=== PATIENT | male | born 1990 | race Caucasian/White ===

== ENCOUNTER 2017-07-17 17:13 | Emergency (ER) | payer SELFPAY ==
[2017-07-17 17:19] VITALS: TEMP 98.5; BMI 31.6
[2017-07-17] MEDS ORDERED: ALBUTEROL SO4 2.5/IPRATROPIUM 0.5 INH SOL 3 ML VIAL.NEB. NEB ONE ×4 (17:31→17:58)
[2017-07-17] MEDS ORDERED: predniSONE 20 MG TABLET (UD) ONE (17:42)
--- NOTE | 2017-07-17 17:46 | PDOC ---
History of Present Illness - General Chief Complaint: Asthma Stated Complaint: ASTHMA Time Seen by Provider: 07/17/17 17:24 History Source: Patient Exam Limitations: No Limitations - History of Present Illness Initial Comments: 07/17/17 17:46 The patient is a 26M with a PMH of asthma who presents with an asthma exacerbation. The patient states that he has had a deep cough productive with yellow sputum for 3 days. He has never been intubated and never had an ICU stay. His last exacerbation was when he was 12-13 years old where he was hospitalized for a couple days. He does have seasonal allergies. Past History - Past Medical History Allergies/Adverse Reactions: Allergies Allergy/AdvReac Type Severity Reaction Status Date / Time No Known Allergies Allergy Verified 07/17/17 17:19 Home Medications: Ambulatory Orders Albuterol Sulfate Inhaler - [Ventolin Hfa Inhaler -] 1 - 2 inh PO QID PRN #1 inhaler 07/17/17 Inhaler, Assist Devices [Space Chamber Plus] 1 each MC QID #1 spacer 07/17/17 Prednisone [Deltasone] 20 mg PO DAILY #8 tablet 07/17/17 Prednisone [Deltasone -] 40 mg PO DAILY #8 tablet 07/18/17 Asthma: Yes - Immunization History Immunization Up to Date: Yes - Psycho/Social/Smoking Cessation Hx Anxiety: No Suicidal Ideation: No Smoking History: Never smoked Have you smoked in the past 12 months: No Information on smoking cessation initiated: No Hx Alcohol Use: No Drug/Substance Use Hx: No Substance Use Type: None Review of Systems - Review of Systems Able to Perform ROS?: Yes Is the patient limited Belarusian proficient: No Constitutional: No: Chills, Fever Respiratory: Yes: Cough, Shortness of Breath Cardiac (ROS): No: Chest Pain ABD/GI: No: Constipated, Diarrhea, Nausea, Vomiting : No: Burning, Dysuria, Discharge Neurological: No: Headache, Numbness, Tingling, Weakness *Physical Exam - Vital Signs Last Vital Signs Temp Pulse Resp BP Pulse Ox 98.5 F 90 18 165/97 95 07/17/17 17:14 07/17/17 17:14 07/17/17 17:14 07/17/17 17:14 07/17/17 17:14 - Physical Exam General Appearance: Yes: Nourished, Appropriately Dressed. No: Apparent Distress HEENT: positive: Normal Voice, Hearing Grossly Normal Respiratory/Chest: positive: Wheezing (b/l lower lung nevarez). negative: Chest Tender, Lungs Clear, Respiratory Distress, Accessory Muscle Use, Labored Respiration, Rapid RR, Decreased Breath Sounds, Crackles, Rales, Rhonchi, Stridor, Dullness Cardiovascular: positive: Regular Rhythm, Regular Rate, S1, S2. negative: Diastolic Murmur, Systolic Murmur Gastrointestinal/Abdominal: positive: Flat, Soft. negative: Tender, Protuberent , Distended, Guarding, Rebound, Tenderness Integumentary: positive: Dry, Warm. negative: Cold, Clammy, Swelling, Ecchymosis Neurologic: positive: Fully Oriented, Alert, Normal Mood/Affect, Motor Strength 5/5 Medical Decision Making - Medical Decision Making 07/17/17 17:53 The patient is a 26M with a PMH of asthma who presents with an asthma exacerbation. The patient admits to feeling "sick" but also having an exposure to pollen which he is allergic to. I am giving him breathing treatments and steroids and will reassess. 07/17/17 18:30 Patient states he is feeling better. Was informed to follow with Dr. Kirk on an outpatient basis. 07/17/17 19:43 CXR read by my attending and I and does not show an acute pathology in our opinion. Patient informed and will be discharged. 07/17/17 19:44 Patient agrees and is ready for d/c. *DC/Admit/Observation/Transfer Diagnosis at time of Disposition: Asthma Qualifiers: Asthma severity: mild intermittent Asthma complication type: with acute exacerbation Qualified Code(s): J45.21 - Mild intermittent asthma with (acute) exacerbation - Discharge Dispostion Disposition: HOME Condition at time of disposition: Stable Admit: No - Prescriptions Prescriptions: Prednisone [Deltasone] 20 mg PO DAILY #8 tablet Prednisone [Deltasone -] 40 mg PO DAILY #8 tablet Inhaler, Assist Devices [Space Chamber Plus] 1 each MC QID #1 spacer Albuterol Sulfate Inhaler - [Ventolin Hfa Inhaler -] 1 - 2 inh PO QID PRN #1 inhaler PRN Reason: Short Of Breath/Wheezing - Referrals Referrals: STAFF,NOT ON [Primary Care Provider] - - Patient Instructions Printed Discharge Instructions: Asthma -- Adult Additional Instructions: Please return to the ER if symptoms persist, worsen, or if new symptoms arise. Please take your medications as prescribed: - Prednisone for 4 days; 2 tablets per day - Ventolin as needed for wheezing or shortness of breath - Use the spacer with the ventolin (inhaler) Please follow up with your primary care doctor in 2-3 days. Please follow up with Dr. Kirk within 2-3 days. Print Language: MAURITIAN
[2017-07-17] MEDS ORDERED: predniSONE 20 MG TABLET (UD) PO ONE (17:57)
--- NOTE | 2017-07-17 18:03 | PDOC ---
Attending Attestation - HPI HPI: 07/17/17 18:08 The patient is a 26 year old male, with significant past medical history of asthma and seasonal allergies, who presents to the emergency room with 3 days of productive cough with yellow sputum, fever, chills, and difficulty breathing. He has been taking advil for the fever with mild relief. He has never been intubated. Denies chest pain/ tightness. - Physicial Exam PE: 07/17/17 18:08 Constitutional: Awake, alert, oriented. No acute distress. Speaking in full sentences. Head: Normocephalic. Atraumatic Eyes: PERRL. EOMI. Conjunctivae are not pale. ENT: Mucous membranes are moist and intact. Posterior pharynx without exudates or erythema. Uvula midline. Neck: Supple. Full ROM. No lymphadenopathy. Cardiovascular: Regular rate. Regular rhythm. S1, S2 regular. Distal pulses are 2+ and symmetric. Pulmonary/Chest: +prolonged expiratory phase. Wheezes in the bases and lower lobes posteriorly. Some soft crackles at the right base. Speaking in full sentences. Skin: Skin is warm and dry. No petechiae. No purpura. Neurological: Alert and oriented to person, place, and time. Cranial nerves II -XII are grossly intact. Normal speech. Strength is grossly symmetric. No sensory deficits. Psychiatric: Good eye contact. Normal interaction, affect and behavior. <Chana Bowden - Last Filed: 07/17/17 18:08> - Resident Resident Name: Frantz Staton - ED Attending Attestation I have performed the following: I have examined & evaluated the patient, The case was reviewed & discussed with the resident, I agree w/resident's findings & plan, Exceptions are as noted - Medical Decision Making 07/17/17 18:03 a/p: 26yo male with hx of asthma now with 2 days of wheezing, cough, chest tightness -cxr -nebs -steroids -monitor -nontoxic in appearance 07/17/17 18:33 I, Dr. Letitia Dailey, DO, attest that this document has been prepared under my direction and personally reviewed by me in its entirety. I further attest, that it accurately reflects all work, treatment, procedures and medical decision -making performed by me. 09/16/17 18:35 re-eval: pt feeling much better. nad. lungs cta. discussed all reasons to return to the ED. Recommended pulmonary follow up. Pt stable for d/c to home. 07/17/17 19:12 <Letitia Dailey - Last Filed: 07/17/17 19:13> Discharge Disposition <Chana Bowden - Last Filed: 07/17/17 18:08> <Letitia Dailey - Last Filed: 07/17/17 19:13> - Diagnosis Asthma Qualifiers: Asthma severity: mild intermittent Asthma complication type: with acute exacerbation Qualified Code(s): J45.21 - Mild intermittent asthma with (acute) exacerbation - Discharge Dispostion Disposition: HOME Condition at time of disposition: Stable - Prescriptions Prescriptions: Prednisone [Deltasone] 20 mg PO DAILY #8 tablet Prednisone [Deltasone -] 40 mg PO DAILY #8 tablet Inhaler, Assist Devices [Space Chamber Plus] 1 each MC QID #1 spacer Albuterol Sulfate Inhaler - [Ventolin Hfa Inhaler -] 1 - 2 inh PO QID PRN #1 inhaler PRN Reason: Short Of Breath/Wheezing - Referrals Referrals: STAFF,NOT ON [Primary Care Provider] - - Patient Instructions Printed Discharge Instructions: Asthma -- Adult Additional Instructions: Please return to the ER if symptoms persist, worsen, or if new symptoms arise. Please take your medications as prescribed: - Prednisone for 4 days; 2 tablets per day - Ventolin as needed for wheezing or shortness of breath - Use the spacer with the ventolin (inhaler) Please follow up with your primary care doctor in 2-3 days. Please follow up with Dr. Kirk within 2-3 days.
[2017-07-17 20:00] VITALS: BP 126/75; PULSE 93
== END 2017-07-17 20:00 | disposition home or self-care (01) ==
LOC: JER 17:13
PROC: 3E0F7GC Introduction of Other Therapeutic Substance into Respiratory Tract, Via Natural or Artificial Opening (ICD-10-PCS; principal; 2017-07-17)
PROC: 3E0F7GC Introduction of Other Therapeutic Substance into Respiratory Tract, Via Natural or Artificial Opening (ICD-10-PCS; 2017-07-17)
PROC: 3E0F7GC Introduction of Other Therapeutic Substance into Respiratory Tract, Via Natural or Artificial Opening (ICD-10-PCS; 2017-07-17)
DX: J45.21 Mild intermittent asthma with (acute) exacerbation (principal)
CPT/HCPCS: 71020-TC; 99282-25

== ENCOUNTER 2018-01-23 15:29 | Emergency (ER) | payer OTHER ==
[2018-01-23 15:36] VITALS: BP 153/81; PULSE 82; TEMP 97.8; BMI 32.4
[2018-01-23] MEDS ORDERED: ALBUTEROL SO4 2.5/IPRATROPIUM 0.5 INH SOL 3 ML VIAL.NEB. NEB ONE (16:00)
[2018-01-23] MEDS ORDERED: predniSONE 20 MG TABLET (UD) PO ONE (16:01)
[2018-01-23] MEDS ORDERED: predniSONE 20 MG TABLET (UD) ONE (16:44)
--- NOTE | 2018-01-23 16:48 | PDOC ---
History of Present Illness - General Chief Complaint: Respiratory Stated Complaint: CONGESTION, SOB (ASTHMA) Time Seen by Provider: 01/23/18 15:38 History Source: Patient Exam Limitations: No Limitations - History of Present Illness Initial Comments: 01/23/18 16:43 27-year-old male with history of asthma presents to the ED with complaints of intermittent coughing and wheezing for the past 2 days. Patient states symptoms initially started with nasal congestion which he believes triggered his symptoms above. Patient denies chest pain, shortness of breath, fever, chills, abdominal pain, or nausea. Patient denies smoking. Timing/Duration: reports: yesterday Severity: reports: mild Possible Cause: Yes: occasional episodes Modifying Factors: improves with: albuterol nebulizer, coughing Associated Symptoms: reports: cough, nasal congestion, wheezing Past History - Travel Traveled outside of the country in the last 30 days: No - Past Medical History Allergies/Adverse Reactions: Allergies Allergy/AdvReac Type Severity Reaction Status Date / Time No Known Allergies Allergy Verified 01/23/18 15:36 Home Medications: Ambulatory Orders NK [No Known Home Medication] 01/23/18 Asthma: Yes COPD: No - Immunization History Immunization Up to Date: Yes - Suicide/Smoking/Psychosocial Hx Smoking History: Never smoked Have you smoked in the past 12 months: No Hx Alcohol Use: No Drug/Substance Use Hx: No Substance Use Type: None Patient Lives Alone: No Lives with/in: parents Review of Systems - Review of Systems Able to Perform ROS?: Yes Constitutional: No: Symptoms Reported HEENTM: No: Symptoms Reported Respiratory: Yes: Cough, Wheezing Cardiac (ROS): No: Symptoms Reported ABD/GI: No: Symptoms Reported : No: Symptoms Reported Musculoskeletal: No: Symptoms Reported Integumentary: No: Symptoms Reported Neurological: No: Symptoms reported *Physical Exam - Vital Signs Last Vital Signs Temp Pulse Resp BP Pulse Ox 97.8 F 82 18 153/81 95 01/23/18 15:33 01/23/18 15:33 01/23/18 15:33 01/23/18 15:33 01/23/18 15:33 - Physical Exam General Appearance: Yes: Nourished, Appropriately Dressed. No: Apparent Distress Neck: positive: Supple Respiratory/Chest: positive: Wheezing (exp. bilateral). negative: Respiratory Distress, Accessory Muscle Use, Labored Respiration Cardiovascular: positive: Regular Rhythm, Regular Rate. negative: Murmur Extremity: negative: Pedal Edema Integumentary: positive: Normal Color, Warm, Moist Neurologic: positive: Motor Strength 5/5 (ambulatory) Medical Decision Making - Medical Decision Making 01/23/18 16:46 Patient with mild asthma exacerbation. Patient examined expiratory wheeze to bilateral lung nevarez. Patient ordered for DuoNeb along with prednisone by mouth here patient will be discharged home with inhaler and prednisone for 2 more days. Patient states is not have any more medication including inhaler at home. *DC/Admit/Observation/Transfer Diagnosis at time of Disposition: Asthma - Discharge Dispostion Disposition: HOME Condition at time of disposition: Improved - Referrals - Patient Instructions Printed Discharge Instructions: DI for Asthma -- Adult Additional Instructions: Please take prednisone starting tomorrow. Please Inhaler with you at all times. - Post Discharge Activity
== END 2018-01-23 17:08 | disposition home or self-care (01) ==
LOC: JERFT 15:29
PROC: 3E0F7GC Introduction of Other Therapeutic Substance into Respiratory Tract, Via Natural or Artificial Opening (ICD-10-PCS; principal; 2018-01-23)
DX: J45.901 Unspecified asthma with (acute) exacerbation (principal)
CPT/HCPCS: 94640; 99281-25

== ENCOUNTER 2019-01-02 04:00 | Emergency (ER) | payer SELFPAY ==
--- NOTE | 2019-01-02 04:06 | PDOC ---
History of Present Illness - General Chief Complaint: Asthma Stated Complaint: ASTHMA Time Seen by Provider: 01/02/19 04:05 History Source: Patient - History of Present Illness Initial Comments: 01/02/19 04:25 28-year-old male with history of asthma complaining of shortness of breath and wheezing, fever for 1-1/2 days at home. Patient reports that she he has been using his albuterol pump with no improvement in symptoms. Patient denies getting a flu vaccine this season. denies NVD, abdominal pain, throat pain Denies intubation for asthma or ICU stay for hospitalization. 01/02/19 04:30 Past History - Past Medical History Allergies/Adverse Reactions: Allergies Allergy/AdvReac Type Severity Reaction Status Date / Time No Known Allergies Allergy Verified 01/23/18 15:36 Home Medications: Ambulatory Orders Albuterol Sulfate Inhaler - [Ventolin HFA Inhaler -] 1 - 2 inh PO QID PRN #1 inhaler 01/23/18 predniSONE [Deltasone -] 40 mg PO DAILY #4 tablet 01/23/18 Albuterol 0.083% Nebulizer Tasneem [Ventolin 0.083% Nebulizer Soln -] 1 neb NEB Q4H PRN #25 vial 01/02/19 Azithromycin [Zithromax 250mg Tablets -] 250 mg PO DAILY #4 tab 01/02/19 Nebulizer [Aeroeclipse II] 1 each MC QID #1 each 01/02/19 Asthma: Yes COPD: No - Immunization History Immunization Up to Date: Yes - Suicide/Smoking/Psychosocial Hx Smoking History: Never smoked Have you smoked in the past 12 months: No Hx Alcohol Use: No Drug/Substance Use Hx: No Substance Use Type: None Review of Systems - Review of Systems Able to Perform ROS?: Yes Is the patient limited Yi proficient: No Constitutional: Yes: Fever HEENTM: Yes: Nose Congestion. No: Symptoms Reported, See HPI, Eye Pain, Blurred Vision, Tearing, Recent change in vision, Double Vision, Cataracts, Ear Pain, Ocular Prothesis, Ear Discharge, Nose Pain, Tinnitus, Nose Bleeding, Hearing Loss, Throat Pain, Throat Swelling, Mouth Pain, Dental Problems, Difficulty Swallowing, Mouth Swelling, Other Respiratory: Yes: Cough, Shortness of Breath, Wheezing. No: Symptoms reported, See HPI, Orthopnea, SOB with Exertion, SOB at Rest, Stridor, Productive cough, Hemoptysis, Other Cardiac (ROS): No: Symptoms Reported, See HPI, Chest Pain, Edema, Irregular Heart Rate, Lightheadedness, Palpitations, Syncope, Chest Tightness, Other ABD/GI: No: Symptoms Reported, See HPI, Abdominal Distended, Abd. Pain w/ defecation, Blood Streaked Bowels, Constipated, Diarrhea, Difficulty Swallowing , Nausea, Poor Appetite, Poor Fluid Intake, Rectal Bleeding, Vomiting, Indigestion, Abdominal cramping, Tarry Stools, Other *Physical Exam - Vital Signs 01/02/19 04:31 Last Vital Signs Temp Pulse Resp BP Pulse Ox 102.9 F H 129 H 19 131/74 96 01/02/19 04:00 01/02/19 04:00 01/02/19 04:00 01/02/19 04:00 01/02/19 04:00 - Physical Exam General Appearance: Yes: Appropriately Dressed HEENT: positive: Normal ENT Inspection Respiratory/Chest: positive: Decreased Breath Sounds, Wheezing Cardiovascular: positive: Tachycardia Gastrointestinal/Abdominal: positive: Normal Bowel Sounds, Soft Musculoskeletal: positive: Normal Inspection Extremity: positive: Normal Capillary Refill, Normal Inspection, Normal Range of Motion Integumentary: positive: Normal Color, Dry, Warm Neurologic: positive: Fully Oriented, Alert, Normal Mood/Affect Progress Note - Progress Note Progress Note: A: asthma exacerbation; bronchitis P: chest xray duoneb decadron IVF Medical Decision Making - Medical Decision Making 01/02/19 06:40 improved aeration . reports feeling better. will d/ c home *DC/Admit/Observation/Transfer Diagnosis at time of Disposition: Bronchitis Asthma exacerbation Qualifiers: Asthma severity: mild Asthma persistence: intermittent Qualified Code(s): J45.21 - Mild intermittent asthma with (acute) exacerbation - Discharge Dispostion Disposition: HOME - Prescriptions Prescriptions: Albuterol 0.083% Nebulizer Tasneem [Ventolin 0.083% Nebulizer Soln -] 1 neb NEB Q4H PRN #25 vial PRN Reason: Cough Azithromycin [Zithromax 250mg Tablets -] 250 mg PO DAILY #4 tab Nebulizer [Aeroeclipse II] 1 each QID #1 each - Referrals Referrals: [facility] [Provider Group] - 24 hours - Patient Instructions Printed Discharge Instructions: Asthma -- Adult Additional Instructions: drink plenty of fluids take ibuprofen every 6 hours as needed for fever use albuterol every 6 hours as needed for fever follow up with your doctor as soon as possible Additional Instructions: * Please call your personal physician to report your Emergency Department visit and to report your progress, if any. * If there is no improvement in symptoms in 2 days call your physician. * Return to the Emergency Department for any worsening symptoms. - Post Discharge Activity
[2019-01-02] MEDS ORDERED: IBUPROFEN 600 MG TABLET (FP) PO ONE ×2 (04:17→04:25)
[2019-01-02] MEDS ORDERED: ALBUTEROL SO4 2.5/IPRATROPIUM 0.5 INH SOL 3 ML VIAL.NEB. NEB ONE ×4 (04:17→05:59)
[2019-01-02 04:19] VITALS: BMI 31.6
[2019-01-02] MEDS ORDERED: DEXAMETHASONE 4 MG TABLET (FP) PO ONE (05:30)
[2019-01-02] MEDS ORDERED: SODIUM CHLORIDE 0.9% 500 ML INFUS.BAG IV ONE (05:39)
[2019-01-02] MEDS ORDERED: AZITHROMYCIN 500 MG TABLET PO ONE (05:45)
[2019-01-02] MEDS ORDERED: DEXAMETHASONE SOD PHOSPHATE 10 MG/1 ML VIAL ONE (05:50)
[2019-01-02] MEDS ORDERED: AZITHROMYCIN 250 MG TABLET ONE (05:50)
[2019-01-02 06:48] VITALS: BP 133/71; PULSE 98; TEMP 99.6
== END 2019-01-02 06:53 | disposition home or self-care (01) ==
LOC: JER 04:00
PROC: 3E0F7GC Introduction of Other Therapeutic Substance into Respiratory Tract, Via Natural or Artificial Opening (ICD-10-PCS; principal; 2019-01-02)
DX: J45.901 Unspecified asthma with (acute) exacerbation (principal)
CPT/HCPCS: 71045-TC-FY; 87804; 99281-25

== ENCOUNTER 2019-03-08 21:22 | Emergency (ER) | payer SELFPAY ==
[2019-03-08] MEDS ORDERED: ALBUTEROL SO4 2.5/IPRATROPIUM 0.5 INH SOL 3 ML VIAL.NEB. NEB SCH (21:30)
[2019-03-08] MEDS ORDERED: DEXAMETHASONE LIQUID 0.5 MG/5 ML 240 ML BULK BOTTLE PO ONE (21:30)
--- NOTE | 2019-03-08 21:30 | PDOC ---
Rapid Medical Evaluation Time Seen by Provider: 03/08/19 21:29 Medical Evaluation: Allergies Allergy/AdvReac Type Severity Reaction Status Date / Time No Known Allergies Allergy Verified 01/23/18 15:36 03/08/19 21:29 HIP: SOB asthma acting up since yesterday PE: mild wheezing R base ORDERS: duo nebs and decadron Discharge Disposition - Diagnosis Asthma exacerbation - Referrals - Patient Instructions - Post Discharge Activity
[2019-03-08 21:31] VITALS: BP 129/73; PULSE 92; TEMP 98.5; BMI 31.6
--- NOTE | 2019-03-08 21:40 | PDOC ---
History of Present Illness - General Chief Complaint: Cold Symptoms Stated Complaint: HEADACE/COLD Time Seen by Provider: 03/08/19 21:29 History Source: Patient Exam Limitations: No Limitations - History of Present Illness Initial Comments: Patient is a 28-year-old male with a history of asthma who states she has been using his inhaler without success. Patient denies fever. Pt denies any aggravating or relieving factors. 03/08/19 21:35 Past History - Travel Traveled outside of the country in the last 30 days: No Close contact w/someone who was outside of country & ill: No - Past Medical History Allergies/Adverse Reactions: Allergies Allergy/AdvReac Type Severity Reaction Status Date / Time No Known Allergies Allergy Verified 03/08/19 21:32 Home Medications: Ambulatory Orders Albuterol Sulfate Inhaler - [Ventolin HFA Inhaler -] 1 - 2 inh PO QID PRN #1 inhaler 01/23/18 Albuterol 0.083% Nebulizer Tasneem [Ventolin 0.083% Nebulizer Soln -] 1 neb NEB Q4H PRN #25 vial 01/02/19 Methylprednisolone [Medrol Dose Paul] 4 mg PO ASDIR #21 tablet 03/08/19 Asthma: Yes COPD: No - Immunization History Immunization Up to Date: Yes - Suicide/Smoking/Psychosocial Hx Smoking History: Never smoked Have you smoked in the past 12 months: No Hx Alcohol Use: No Drug/Substance Use Hx: No Substance Use Type: None Review of Systems - Review of Systems Able to Perform ROS?: Yes Constitutional: No: Chills, Fever Respiratory: Yes: Wheezing. No: Cough, Shortness of Breath *Physical Exam - Vital Signs Last Vital Signs Temp Pulse Resp BP Pulse Ox 98.5 F 92 H 20 129/73 95 03/08/19 21:30 03/08/19 21:30 03/08/19 21:30 03/08/19 21:30 03/08/19 21:30 - Physical Exam Comments: Constitutional: VS stated, pt appears in no apparent distress; sitting in chair. ABle speak in complete sentences without become short of breath. Skin: Warm and dry. Intact, no lesions or excoriations. Head: Normocephalic; atraumatic Eyes: conjunctiva pink without injection or discharge. Ears: No tenderness present. Canals without injection or discharge; TM clear, no retractions or bulging. Nose: Patent, mucosa pink. No drainage. Throat: Oropharynx with pink and moist mucosa. Dentition good. No pharyngeal edema; erythema or exudate. Tongue normal, no fasciculations. Airway Patent. Hypoglossal area is soft. Uvula is midline. No trismus. Neck: Supple, non-tender, with full ROM, trachea midline, no anterior/posterior cervical chain lymphadenopathy, t Chest: Normal AP diameter, symmetrical excursions bilaterally, no retractions or bulging of the intercostal spaces. No pain or tenderness noted on palpation. Lungs: Mild expriatory wheezing Heart: Regular rate and rhythm, S1/S2 auscultated. No murmurs, rubs, or gallops. No visible pulsations, heaves, or lifts on precordium. Musculoskeletal: Moves all extremities without difficulty Neurologic: Awake, alert. Conversation fluent. 03/08/19 21:36 Medical Decision Making - Medical Decision Making 03/08/19 21:37 Pt states he has his inhaler at home *DC/Admit/Observation/Transfer Diagnosis at time of Disposition: Asthma exacerbation - Discharge Dispostion Disposition: HOME Condition at time of disposition: Good - Referrals - Patient Instructions Printed Discharge Instructions: DI for Asthma -- Adult Additional Instructions: Take steroids as directed and use your inhaler that you state you have at home as directed. F/U with your PCP - Post Discharge Activity Forms/Work/School Notes: Back to Work
[2019-03-08] MEDS ORDERED: DEXAMETHASONE SOD PHOSPHATE 4 MG/1 ML VIAL ONE (21:43)
== END 2019-03-09 00:38 | disposition home or self-care (01) ==
LOC: JERFT 21:22
DX: J45.901 Unspecified asthma with (acute) exacerbation (principal)
CPT/HCPCS: 99281-25

== ENCOUNTER 2019-03-11 19:22 | Emergency (ER) | payer SELFPAY ==
[2019-03-11 19:31] VITALS: BMI 31.6
[2019-03-11] MEDS ORDERED: MAG HYDROX/AL HYDROX/SIMETH 30 ML UNIT-DOSE CUP PO ONE (19:57)
[2019-03-11] MEDS ORDERED: FAMOTIDINE 20 MG/50 ML IVPB 20 MG/50 ML MG IVPB ONE ×2 (19:57→20:11)
[2019-03-11] MEDS ORDERED: SODIUM CHLORIDE 1,000 ML IV STA (19:57)
[2019-03-11] MEDS ORDERED: ONDANSETRON 4 MG/2 ML VIAL IVPUSH ONE (19:57)
[2019-03-11] MEDS ORDERED: MAG HYDROX/AL HYDROX/SIMETH 30 ML UNIT-DOSE CUP ONE (20:10)
[2019-03-11] MEDS ORDERED: ONDANSETRON 4 MG/2 ML VIAL ONE (20:11)
--- NOTE | 2019-03-11 20:13 | PDOC ---
History of Present Illness - General Chief Complaint: Pain, Acute Stated Complaint: NAUSEA/ABD PAIN Time Seen by Provider: 03/11/19 19:37 History Source: Patient Exam Limitations: No Limitations - History of Present Illness Initial Comments: 03/11/19 20:01 28 yo male pmh of asthma presents to the ED with 3 days of loose stools, NB/NB vomiting, lethargy and decreased PO intake. Pt was recently treated for asthma exacerbation, given steroids PO and since then has developed the presenting s/ s. Also admits to eating fish and a hamburger prepared by his mother, denies other family members with similar symptoms, sick contacts, recent travel, F/C. Pt admits to diffuse crampy abdominal pain, substernal burning with hiccups and burning for the anus with defecation. Denies CP, SOB, back pain. Past History - Past Medical History Allergies/Adverse Reactions: Allergies Allergy/AdvReac Type Severity Reaction Status Date / Time No Known Allergies Allergy Verified 03/08/19 21:32 Home Medications: Ambulatory Orders Albuterol Sulfate Inhaler - [Ventolin HFA Inhaler -] 1 - 2 inh PO QID PRN #1 inhaler 01/23/18 Albuterol 0.083% Nebulizer Tasneem [Ventolin 0.083% Nebulizer Soln -] 1 neb NEB Q4H PRN #25 vial 01/02/19 Methylprednisolone [Medrol Dose Paul] 4 mg PO ASDIR #21 tablet 03/08/19 Methylprednisolone [Medrol Dose Paul] 4 mg PO ASDIR #21 tablet 03/08/19 Ranitidine HCl [Zantac] 150 mg PO PRN 7 Days #14 tablet 03/11/19 [place] 50% (Tucks) [Tucks [place] Pads] 7 pad TP ONCE 7 Days #7 pad 09/19 Asthma: Yes COPD: No - Immunization History Immunization Up to Date: Yes - Suicide/Smoking/Psychosocial Hx Smoking History: Unknown if ever smoked Have you smoked in the past 12 months: No Information on smoking cessation initiated: No Hx Alcohol Use: No Drug/Substance Use Hx: No Substance Use Type: None *Physical Exam - Vital Signs Last Vital Signs Temp Pulse Resp BP Pulse Ox 97.8 F 77 16 131/76 100 03/11/19 19:22 03/11/19 19:22 03/11/19 19:22 03/11/19 19:22 03/11/19 19:22 ED Treatment Course - LABORATORY CBC & Chemistry Diagram: 03/11/19 20:08 03/11/19 20:08 *DC/Admit/Observation/Transfer Diagnosis at time of Disposition: Diarrhea, Abdominal pain - Discharge Dispostion Disposition: HOME Condition at time of disposition: Stable Decision to Admit order: No - Prescriptions Prescriptions: Ranitidine HCl [Zantac] 150 mg PO PRN 7 Days #14 tablet - Referrals - Patient Instructions Printed Discharge Instructions: DI for Abdominal Pain-Adult, DI for Viral Gastroenteritis -- Adult Additional Instructions: Please see your primary doctor within the next 48 hours. Take the medication sent to your pharmacy as prescribed. Make sure to drink a lot of fluids. Return to the ER for new or concerning symptoms including but not limited to: high fevers, excessive abdominal pain, inability to eat or drink. Thank you - Post Discharge Activity
[2019-03-11 20:17] LABS: BASO % 0.9 % (0-2.0); HEMATOCRIT 45.6 % (35.4-49); LYMPH % 36.1 % (8-40); MCH 28.6 pg (25.7-33.7); MCHC 32.9 g/dl (32.0-35.9); MONO % 7.3 % (3.8-10.2); NEUT % 46.7 % (42.8-82.8); PLATELET COUNT 225 K/MM3 (134-434); RBC 5.24 M/mm3 (4.00-5.60)
--- NOTE | 2019-03-11 20:32 | PDOC ---
Documentation entered by Sujit Valenzuela SCRIBE, acting as scribe for Dominga Sullivan MD. Dominga Sullivan MD: This documentation has been prepared by the Nicolas miranda Xhesika, SCRIBE, under my direction and personally reviewed by me in its entirety. I confirm that the documentation accurately reflects all work, treatment, procedures, and medical decision making performed by me. Attending Attestation - Resident Resident Name: Adal De León - ED Attending Attestation I have performed the following: I have examined & evaluated the patient, The case was reviewed & discussed with the resident, I agree w/resident's findings & plan, Exceptions are as noted - HPI HPI: 03/11/19 20:25 The patient is a 28 year old male with a significant past medical history of asthma who presents to our ED with 3 days of loose stools. The patient states he was recently seen here on 03/09/19 for asthma and was given steroids. Patient states shortly after taking his steroids, he endorsed "crampy" abdominal pain after eating that felt like acid that gave him hiccups and made him burp constantly. The patient states when his symptoms first began he ate a hamburger that his mom prepared at home. The patient denies any recent travel or sick contact. The patient denies chest pain, shortness of breath or dizziness. The patient denies fever, chills or constipation. The patient denies dysuria or hematuria. Allergy: NKDA Surgical History: None reported Social History: None reported - Physicial Exam PE: 03/11/19 20:11 GENERAL: The patient is in no acute distress. ENT: Ears normal, nares patent, oropharynx clear without exudates. Moist mucous membranes. NECK: Normal range of motion, supple LUNGS: Breath sounds equal, clear to auscultation bilaterally. No wheezes, and no crackles. HEART:Regular rate and rhythm, normal S1 and S2 without murmur, rub or gallop. ABDOMEN: Soft, nontender RECTAL: per Dr de león's note EXTREMITIES: Normal range of motion, no edema. NEUROLOGICAL: Cranial nerves II through XII grossly intact. Normal speech. No focal neurological deficits. SKIN: Warm, Dry, normal turgor, no rashes or lesions noted. 03/11/19 20:28 - Medical Decision Making 03/11/19 20:28 28 yo M presenting to the ER with a complaint of abdominal pain Pt states that when he eats, he develops epigastric burning and burping No vomiting He has also had loose stools Patient's main complaint to me is anal pain When he eats, it makes him want to have a bowel movement which he is afraid to do because he has anal pain Gastritis, colitis, dyspepsia, Hpylori, ulcer Will do: Labs, IVF, zofran, pepcid Will re assess 03/11/19 21:08 Laboratory Tests 03/11/19 03/11/19 20:08 20:08 WBC 8.0 Hgb 15.0 Hct 45.6 Plt Count 225 Sodium 141 Potassium 4.5 Chloride 106 Carbon Dioxide 31 BUN 16 Creatinine 1.0 Random Glucose 90 AST 17 ALT 47 Lipase 155 Labs WNL Will discharge to home Will ask pt to follow up with PMD Return precautions given
[2019-03-11 20:41] LABS: ALBUMIN 3.6 g/dl (3.4-5.0); BILIRUBIN,TOTAL 0.4 mg/dL (0.2-1); POTASSIUM 4.5 mmol/L (3.5-5.1); TOT PROT 6.7 g/dl (6.4-8.2)
[2019-03-11 21:58] VITALS: BP 129/79; PULSE 60; TEMP 98.2
== END 2019-03-11 21:58 | disposition home or self-care (01) ==
LOC: JER 19:22
PROC: 3E033GC Introduction of Other Therapeutic Substance into Peripheral Vein, Percutaneous Approach (ICD-10-PCS; principal; 2019-03-11)
PROC: 3E0337Z Introduction of Electrolytic and Water Balance Substance into Peripheral Vein, Percutaneous Approach (ICD-10-PCS; 2019-03-11)
DX: R19.7 Diarrhea, unspecified (principal); R10.9 Unspecified abdominal pain
CPT/HCPCS: 36415; 80053; 83690; 85025; 99282-25; J7030

== ENCOUNTER 2023-09-06 14:57 | Emergency (ER) | payer OTHER | END 2023-09-06 15:05 | disposition left against medical advice (07) | LOC: JER 14:57 | DX: R11.10 Vomiting, unspecified (principal) | CPT/HCPCS: 99281-25 ==